=== PATIENT | male | born 1990 | race Hispanic/Latino ===

== ENCOUNTER 2018-01-04 08:24 | Emergency (ER) | payer MEDICAID, OTHER ==
[2018-01-04 08:27] VITALS: RESP 16; TEMP 98.2; O2SAT 99
[2018-01-04] MEDS ORDERED: Naproxen 500 MG TAB PO STA (09:22)
[2018-01-04] MEDS ORDERED: Naproxen 500 MG TAB PO ONE (09:36)
--- NOTE | 2018-01-04 10:12 | ED PDOC ---
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 Denies back, neck or head trauma. States since the event pain localizing to rear L thigh, more with walking. Denies fever, swelling or bruising. Using OTC meds without much relief. Denies knee or ankle/foot pain/. Past Medical History Reviewed: Historical Data, Nursing Documentation, Vital Signs Vital Signs: Last Vital Signs Temp 98.2 F 01/04/18 08:25 Pulse 82 01/04/18 08:25 Resp 16 01/04/18 08:25 BP 125/78 01/04/18 08:25 Pulse Ox 99 01/04/18 08:25 - Medical History PMH: No Chronic Diseases - Surgical History Other surgeries: b/l knees - Family History Family History: States: Unknown Family Hx - Immunization History Hx Tetanus Toxoid Vaccination: No Hx Influenza Vaccination: No Hx Pneumococcal Vaccination: No - Home Medications Home Medications: Ambulatory Orders Medication Instructions Recorded Bacitracin Ointment [Bacitracin] 30 gm TOP BID #1 tube 03/07/15 Ibuprofen 600 mg PO BID #28 tab 03/07/15 Naproxen [Naprosyn] 500 mg PO BID PRN #14 tablet 01/04/18 - Allergies Allergies/Adverse Reactions: Allergies Allergy/AdvReac Type Severity Reaction Status Date / Time No Known Allergies Allergy Verified 03/07/15 09:27 Review of Systems Constitutional: Negative for: Fever Respiratory: Negative for: Shortness of Breath Genitourinary Male: Negative for: Incontinence Musculoskeletal: Positive for: Leg Pain. Negative for: Shoulder Pain, Arm Pain , Back Pain, Hand Pain, Foot Pain Skin: Negative for: Rash, Lesions, Jaundice Neurological: Negative for: Weakness, Numbness Physical Exam - Reviewed Nursing Documentation Reviewed: Yes Vital Signs Reviewed: Yes - Physical Exam Appears: Positive for: Well, Non-toxic Head Exam: Positive for: ATRAUMATIC Skin: Positive for: Normal Color, Warm, Dry Respiratory: Negative for: Respiratory Distress Extremity: Positive for: Other (+ mild tenderness L hamstring, FROM active/ passive to knee/hip/thigh. No ecchymosis or edema, ankle/foot unremarkable). Negative for: Swelling - ECG O2 Sat by Pulse Oximetry: 99 - Radiology X-Ray: Interpreted by Me X-Ray Interpretation: Other (neg fracture) Medical Decision Making Medical Decision Making: xrays performed r/o occult fx given acute injury last week, naprosyn ordered. JC wrap applied followup ortho if persists. Disposition - Clinical Impression Clinical Impression: Leg pain - Patient ED Disposition Is Patient to be Admitted: No - Disposition Referrals: Cristiana Buchanan MD [Staff Provider] - Disposition: Routine/Home Disposition Time: 10:15 Condition: STABLE Additional Instructions: Use medication as directed. Followup with orthopedics or your PMD in 3-4 days if symptoms persist. Prescriptions: Naproxen [Naprosyn] 500 mg PO BID PRN #14 tablet PRN Reason: Pain, Moderate (4-7) Instructions: Muscle and Bone Pain (DC), Lower Extremity Muscle Strain
--- NOTE | 2018-01-04 10:52 | RAD ---
PROCEDURE: Left Hip X-ray Radiographs. HISTORY: L upper leg pain work injury COMPARISON: None. FINDINGS: BONES: Normal. No fracture. JOINTS: Normal. SOFT TISSUES: Normal. OTHER FINDINGS: None. IMPRESSION: Normal left hip radiographs.
--- NOTE | 2018-01-04 10:52 | RAD ---
PROCEDURE: Left femur HISTORY: L leg pain work injury COMPARISON: January 04, 2018. Left hip reported separately TECHNIQUE: Standard protocol for this study/examination. FINDINGS: No significant/acute osseous, articular or soft tissue abnormalities. Incidental finding(s): Postoperative findings related to left ACL repair IMPRESSION: No acute findings related to/accounting for the clinical presentation. Additional benign and/or incidental findings described above.
[2018-01-04 11:10] VITALS: BP 122/80; PULSE 80
== END 2018-01-04 11:11 | disposition home or self-care (01) ==
LOC: H.ER 08:24
DX: M79.605 Pain in left leg (principal); X50.9XXA Other and unspecified overexertion or strenuous movements or postures, initial encounter; Y99.0 Civilian activity done for income or pay